=== PATIENT | male | born 1970 | race Caucasian/White ===

== ENCOUNTER 2020-11-07 15:44 | Emergency (ER) | payer BC, SELFPAY ==
[2020-11-07 16:21] VITALS: BP 155/101; PULSE 89; RESP 14; TEMP 37.1; O2SAT 99
[2020-11-07 18:05] VITALS: BP 190/106; PULSE 90; RESP 16; O2SAT 97
--- NOTE | 2020-11-07 18:33 | ED_ITS ---
HPI - Dental/Oral General Chief complaint: Dental/Oral Stated complaint: dental pain, facial swelling Time Seen by Provider: 11/07/20 18:07 History of Present Illness HPI Narrative: Patient is a 49-year-old male who presents to the ER with right- sided dental pain. Lower jaw near tooth 30. Associate with swelling. Worsening over the last 2 days. Has follow-up with his dentist scheduled. No fevers or chills or sweats. No difficulty breathing or swallowing. Related Data Allergies Allergy/AdvReac Type Severity Reaction Status Date / Time No Known Allergies Allergy Verified 11/07/20 18:21 Review of Systems Constitutional: Constitutional: Denies chills and Denies fever(s) ENT: Denies sore throat Comments: Dental pain and lower jaw swelling. Respiratory: Respiratory: Denies cough and Denies dyspnea PMFSH Past Medical History Medical History (Updated 11/08/20 @ 08:28 by Aaron Kwong MD) Healthy adult male Surgical History Surgical History (Updated 11/08/20 @ 08:28 by Aaron Kwong MD) No pertinent past surgical history Exam Narrative: GENERAL: Well-appearing, well-nourished, and in no acute distress. HEAD: Normocephalic, atraumatic. ENT: Mucous membranes moist. Poor dentition. Right lower jaw pain. Tender at base of tooth #30. No discernible abscess to drain. NEURO: Alert and oriented x3. PSYCH: Normal mood and affect. Course Course Emergency Course: Discharged with antibiotics and pain medication. Vital Signs Vital signs: Vital Signs Temperature 98.7 F 11/07/20 16:21 Pulse Rate 89 11/07/20 16:21 Respiratory Rate 14 11/07/20 16:21 Blood Pressure 155/101 H 11/07/20 16:21 Pulse Oximetry 99 11/07/20 16:21 Temperature 98.7 F 11/07/20 16:21 Pulse Rate 90 11/07/20 18:05 Respiratory Rate 16 11/07/20 18:05 Blood Pressure 190/106 H 11/07/20 18:05 Pulse Oximetry 97 11/07/20 18:05 Discharge Plan Discharge Clinical Impression: Dental abscess Patient Disposition: Home, Self-Care Condition: Stable Instructions: Antibiotic Form, Dental Abscess (ED) Additional Instructions: Return the ER if you have fever over 100.4 ?F, you cannot breathe, you cannot swallow, you have additional concerns. Prescriptions: New amoxicillin-pot clavulanate [Augmentin] 875-125 mg tablet 1 tablet PO Q12H Qty: 20 RF: 0 hydrocodone-acetaminophen 5-325 mg tablet 1 tablet PO Q6H PRN (Reason: pain) Qty: 14 RF: 0 Follow-up/Referrals: Indira Abad [facility] [Primary Care Provider] -
== END 2020-11-07 19:14 | disposition home or self-care (01) ==
PROVIDERS: Emergency Provider Emergency Medicine
DX: K04.7 Periapical abscess without sinus (principal)
CPT/HCPCS: 99283

== ENCOUNTER 2021-07-07 13:10 | Emergency (ER) | payer BC, SELFPAY ==
[2021-07-07] VITALS (9 sets, daily range): BP systolic 115–160; BP diastolic 61–97; PULSE 83–100; RESP 11–18; TEMP 36.2; O2SAT 99–100
--- NOTE | ~2021-07-07 | US_ITS ---
EXAMINATION: US venous doppler [facility] DATE: 07/07/2021 15:04 INDICATION: LT LEG PAIN TECHNIQUE: Grayscale images without and with compression and Doppler images of the left lower extremi ty veins were obtained. COMPARISON: None. FINDINGS: The left common femoral vein, profunda femoral vein, femoral vein, popliteal vein, peroneal vein, pos terior tibial veins, gastrocnemius vein and greater saphenous vein are patent. IMPRESSION: 1. Patent left lower extremity veins. No evidence of deep venous thrombosis. Reviewed, dictated and finalized at location K.
--- NOTE | ~2021-07-07 | CT_ITS ---
EXAMINATION: CTA abdominal aorta and runoff DATE: 07/07/2021 INDICATION: Black foot, numbness, unable to Doppler pulses TECHNIQUE: Computed tomographic angiography (CTA) of the abdominal, pelvis, and both lower extremitie s was performed with 150 mL Omnipaque-350 intravenous contrast. Automated exposure control and iterat aylin reconstruction technique were employed. The dose-length product was 991.92 mGy-cm. Maximum intens ity projection 3D-reconstructions of the arteries were created by the technologist on a separate work station. COMPARISON: None. FINDINGS: CT ABDOMEN AND PELVIS: Liver: No mass. Biliary: No bile duct dilation. Gallbladder is unremarkable. Spleen: No mass. No splenomegaly. Pancreas: No mass or duct dilation. Adrenals: No mass. Kidneys: No mass, calculus or hydronephrosis. GI tract: No dilation or wall thickening. The appendix appears normal. Lymph nodes: No abdominal or pelvic lymphadenopathy. Mesentery/Peritoneum: No ascites or mass. Vasculature: No aneurysmal dilatation of the abdominal aorta. No evidence of abdominal aortic dissec tion. The celiac artery, superior mesenteric artery, bilateral renal arteries, and inferior mesenter ic artery are normally patent. Crescentic infrarenal abdominal aortic thrombus fills the lumen just d istal to the takeoff of the DELANEY occluding the distal aorta bilateral common iliacs, and internal and external iliac arteries. Reconstitution of flow in the distal left external iliac artery, distal port ions of the bilateral internal iliac arteries, and at the origin of the right common femoral artery. Moderate calcified and noncalcified plaque in the proximal bilateral femoral arteries. Left lower ext remity arteries are decreased in caliber with respect to the right. Minimal calcified plaque in the d istal femoral arteries. Patent trifurcations bilaterally. Three-vessel flow bilaterally at the level of the ankles. No flow present past the midfoot in the distal arteries in the left foot. Pelvis: No mass, ascites or fluid collection. The urinary bladder is unremarkable. Bones/Soft Tissues: The bones contain no worrisome lytic or sclerotic lesions. IMPRESSION: 1. 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 2. Reconstitution of flow in the distal left external iliac artery, bilateral distal internal iliac arteries, and at the right femoral artery origin. 3. Relative decreased flow/caliber in the left lower extremity arteries. 4. No arterial flow in the left foot from the level of the mid foot and more distally. Results communicated to Viki José PA-C telephonically by Dr. Soares at 4:30 on 07/07/2021. Reviewed, dictated and finalized at location K. IMPRESSION: 1. 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 2. Reconstitution of flow in the distal left external iliac artery, bilateral distal internal iliac arteries, and at the right femoral artery origin. 3. Relative decreased flow/caliber in the left lower extremity arteries. 4. No arterial flow in the left foot from the level of the mid foot and more d istally. Results communicated to Viki José PA-C telephonically by Dr. Soares at 4:30 on 07/07/2021.
--- NOTE | ~2021-07-07 | XR_ITS ---
EXAM: XR foot LT min 3V HISTORY: black toes, numbness, red, r/o osteo COMPARISON: None available FINDINGS: Normal mineralization. No fracture or dislocation. No lytic or blastic lesion. Mild scatte red degenerative change. No erosion or periosteal change. Question of subcutaneous gas in the tip of the fifth digit. IMPRESSION: Possible subcutaneous gas in the tip of the fifth digit. Reviewed, dictated and finalized at location K.
--- NOTE | ~2021-07-07 | US_ITS ---
EXAMINATION: US arterial ankle brachial ind DATE: 07/07/2021 15:04 INDICATION: Black toes, unable to Doppler pulses TECHNIQUE: Segmental pressures and plethysmographic and Doppler waveforms of the brachial and lower e xtremity arteries were obtained. COMPARISON: None. FINDINGS: Right and left brachial artery pressures of 149 mm Hg and 150 mm Hg, respectively, are concordant (no rmal difference <= 30 mmHg). The right ankle-brachial index (LILLIAN) is 0.42 (normal >= 0.9-1.0). The right great toe-brachial index (TBI) is 0.24 (normal >= 0.65). Arterial Doppler waveforms severely blunted and irregular. The left LILLIAN is 0.18. The left TBI is not measurable, no left toe signal. Arterial Doppler waveforms are severely blunted and irregular. IMPRESSION: 1. Markedly diminished flow of the bilateral lower extremities with absent left toe signal, consisten t with severe vascular disease. Reviewed, dictated and finalized at location A. IMPRESSION: 1. Markedly diminished flow of the bilateral lower extremities with absent left toe signal, consistent with severe vascular disease.
[2021-07-07 13:46] LABS: Basophils Percent Auto 0.3 % (0.2-1.2); Eosinophils Absolute Auto 0.1 K/mm3 (0-0.3); Eosinophils Percent Auto 0.5 % (0-4.4); Hematocrit 39.9 % (42.0-52.0); Hemoglobin 13.5 g/dL (14.0-18.0); Immature Granulocyte Absolute 0.04 K/mm3 (0.00-0.031); Immature Granulocyte Percent A 0.3 % (0-0.5); Lymphocytes Absolute Auto 3.03 K/mm3 (0.9-3.2); Lymphocytes Percent Auto 26.5 % (18.3-44.2); Mean Corpuscular HGB Conc 33.8 g/dl (32-36); Mean Corpuscular Hemoglobin 32.7 pg (26-34); Mean Corpuscular Volume 96.6 fl (80-100); Mean Platelet Volume 8.9 fl (7.4-10.4); Monocytes Absolute Auto 0.9 K/mm3 (0.1-0.6); Monocytes Percent Auto 7.6 % (2.6-8.5); Neutrophils Absolute Auto 7.4 K/mm3 (1.3-6.7); Neutrophils Percent Auto 64.8 % (45.5-73.1); Platelet Count Result 294 k/mm3 (150-375); Red Blood Count 4.13 M/mm3 (4.6-6.20); Red Cell Distribution Width 12.3 % (11.5-14.5); White Blood Count 11.4 K/mm3 (4.5-10.0)
[2021-07-07 13:55] LABS: Alanine Aminotransferase 18 U/L (4-50); Albumin Level 4.3 g/dL (3.5-5.1); Alkaline Phosphatase 114 U/L (38-126); Anion Gap 8 mmol/L (8-16); Aspartate Amino Transferase 34 U/L (17-59); Bilirubin,Total 0.6 mg/dL (0.2-1.3); Blood Urea Nitrogen 10 mg/dL (9-20); Calcium 9.1 mg/dL (8.4-10.2); Carbon Dioxide 26 mmol/L (22-30); Chloride 99 mmol/L (98-107); Estimated CRCL calculation 130 ml/min; Estimated Glomerular Filt Rate > 60; Glucose 98 mg/dL (65-110); INR 1.2; Potassium 3.8 mmol/L (3.4-5.0); Prothrombin Time 14.3 Seconds (11.1-14.7); Sodium 133 mmol/L (137-145)
[2021-07-07 13:56] LABS: Partial Thromboplastin Time 29.2 SECONDS (22.3-36.8)
--- NOTE | 2021-07-07 14:15 | PC.NURSE ---
Pt in US at this time
[2021-07-07 14:30] LABS: CRP 1.7 mg/dL (<1.0)
--- NOTE | 2021-07-07 14:35 | ED.LOWEXIN ---
HPI - Extremity Injury (Lower) General Chief Complaint: Extremity Injury, Lower <Viki José PA-C - Last Filed: 07/07/21 17:52> Stated Complaint: foot pain <YAO Dewitt Last Filed: 07/07/21 17:52> Time Seen by Provider: 07/07/21 13:29 <YAO Dewitt Last Filed: 07/07/21 17:52> Source: patient <YAO Dewitt Last Filed: 07/07/21 17:52> Mode of arrival: ambulatory <YAO Dewitt Last Filed: 07/07/21 17:52> Limitations: no limitations <YAO Dewitt Last Filed: 07/07/21 17:52> History of Present Illness HPI Narrative: Patient is a 50-year-old male who presents the ED with report of numbness and pain to left foot. Patient reports over the past 1 year, he has been having low back pain and pain shooting down his legs with walking. He states he can only walk about 1 block at a time due to the pain. The pain relieves with rest. He has been receiving cortisone injections in his back for the past 1 month to try to help with the back pain. He states at first the injections were being performed on his right back but the last 4 injections have been on the left side. Patient reports having numbness in his left foot since the first injection has been performed. He states he told his spinal surgeon who sent him to the pain clinic about the numbness and was referred to a neurologist in [facility] who he is scheduled to see this upcoming Friday. Patient states his left foot feels cold. He has noticed redness to his foot and blackness to his toes over the last week. Today, he noticed that his entire L 5th toe was black, which prompted him to come to the ED. Patient denies any fever, chills, nausea, vomiting, chest pain, shortness of breath, Hx of diabetes. Patient denies any other medical problems but does state he does not see a physician regularly. Patient smokes 1 pack/day. <YAO Dewitt Last Filed: 07/07/21 17:52> Related Data Home Medications: Home Medications Medication Instructions Recorded Confirmed No Home Medications 07/07/21 07/07/21 <Viki oJsé PA-C - Last Filed: 07/07/21 17:52> Allergies/Adverse Reactions: Allergies Allergy/AdvReac Type Severity Reaction Status Date / Time No Known Allergies Allergy Verified 07/07/21 15:05 <Viki José PA-C - Last Filed: 07/07/21 17:52> Review of Systems Review of Systems: CONSTITUTIONAL: Denies fever, chills, or sweats. CARDIOVASCULAR: Reports claudication. Denies chest pain. RESPIRATORY: Denies dyspnea. GASTROINTESTINAL: Denies nausea, vomiting. SKIN: Reports coolness, swelling, redness to L foot. Reports black discoloration to L 1st and 5th toes. MUSCULOSKELETAL: Reports low back pain, pain in L foot. NEUROLOGIC: Reports numbness to L foot. <Viki José PA-C - Last Filed: 07/07/21 17:52> All systems reviewed & are unremarkable except as noted in HPI and below <Viki José PA-C - Last Filed: 07/07/21 17:52> PMFSH Past Medical History Medical History: Medical History (Updated 07/07/21 @ 17:52 by Viki José PA-C) No pertinent past medical history <Viki José PA-C - Last Filed: 07/07/21 17:52> Surgical History Surgical History: Surgical History No pertinent past surgical history <Viki José PA-C - Last Filed: 07/07/21 17:52> Social History Social History: Social History (Updated 07/07/21 @ 17:17 by Viki José PA-C) Smoking packs per day: 1 Smoking cigarettes per day: 20.0 Smoking status: Current every day smoker <Viki José PA-C - Last Filed: 07/07/21 17:52> Exam Narrative: GENERAL: Well-nourished, non-toxic, in no acute distress. HEAD: Normocephalic, atraumatic. NECK: Supple. No adenopathy, no masses. RESPIRATORY: Airway patent, respirations nonlabored. Clear to auscultation bilaterally, no rales, rhonchi, wheezing. CARDIOVASCULAR: Reg
[2021-07-07 14:41] LABS: Erythrocyte Sedimentation Rate 95 mm/hr (0-20)
[2021-07-07] MEDS: SODIUM CHLORIDE 0.9% IV 1,000 ML 999 ML IV CONT (17:01)
[2021-07-07] MEDS: HEPARIN SODIUM 5,000 UNITS/ML VIAL 6500 UNITS IV PUSH (17:37)
[2021-07-07] MEDS: HEPARIN SOD/D5W 100 UNITS/ML 25,000 UNITS/250 ML BAG 15 UNITS IV CONT (17:38)
--- NOTE | 2021-07-07 17:54 | PC.NURSE ---
Sat pt in recliner. Pt states he is much more comfortable while sitting
--- NOTE | 2021-07-07 18:10 | PC.NURSE ---
[facility] accepted transfer at 1999. Trip number is [id number]. Called [facility] for transfer and same ETA so kept [facility].
--- NOTE | 2021-07-07 19:25 | PC.NURSE ---
ASsumed care of pt at this time. Pt alert and upright in recliner, awaiting transfer.
== END 2021-07-07 20:23 | disposition short-term general hospital (02) ==
PROVIDERS: Physician Assistant; Emergency Provider Emergency Medicine; PCP Internal Medicine
DX: I74.09 Other arterial embolism and thrombosis of abdominal aorta (principal); E11.52 Type 2 diabetes mellitus with diabetic peripheral angiopathy with gangrene; I96 Gangrene, not elsewhere classified; F17.210 Nicotine dependence, cigarettes, uncomplicated
CPT/HCPCS: 36415; 73630; 75635; 80053; 85025; 85610; 85652; 85730; 86140; 93922; 93971; 96365; 96366; 96367; 96375; 99285; J0131; J1644; J2543; J3370; J7030; Q9967